=== PATIENT | male | born 1985 | race Two or more races ===

== ENCOUNTER 2019-04-17 13:28 | Emergency (ER) | payer OTHER ==
[~2019-04-17] VITALS: Ht 182.9 cm; Wt 120.2 kg
--- NOTE | 2019-04-17 13:35 | NUR ---
ED Nurse Note: Pt BIBA from the street due to ETOH, unknown amount of alcohol. Pt fell 1 hr prior to arrival, hit his frontal head, abrasion noted on chin and upper lip. No LOC. C/o dizziness. Pt seems anxious and asked for "Morphine for pain". HR 127, PA aware. Pt ambulated to the bathroom with steady gait. Will cont to monitor.
[2019-04-17] MEDS ORDERED: Ketorolac 30mg Inj IV ONE (13:45)
[2019-04-17 14:02] LABS: APPEARANCE,URINE CLEAR; BASOPHILS % (AUTO) 1.4 % (0.0-2.0); BILIRUBIN, URINE 1+ (NEGATIVE); EOSINOPHILS % (AUTO) 0.1 % (0.0-3.0); GLUCOSE, URINE (UA) NEGATIVE (NEGATIVE); HEMATOCRIT 48.8 % (42.0-52.0); HEMOGLOBIN 16.9 G/DL (14.2-18.0); KETONES,URINE 2+ (NEGATIVE); LEUKOCYTE ESTERASE ,URINE 1+ (NEGATIVE); LYMPHOCYTES % (AUTO) 10.9 % (20.0-45.0); MEAN CORPUSCULAR VOLUME 85 FL (80-99); MONOCYTES % (AUTO) 8.4 % (1.0-10.0); NEUTROPHILS % (AUTO) 79.2 % (45.0-75.0); NITRITE,URINE NEGATIVE (NEGATIVE); PH,URINE 5 (4.5-8.0); PLATELET COUNT 220 K/UL (150-450); PROTEIN,URINE 3+ (NEGATIVE); RED BLOOD COUNT 5.73 M/UL (4.70-6.10); RED CELL DISTRIBUTION WIDTH 12.2 % (11.6-14.8); UROBILINOGEN,URINE 4 MG/DL (0.0-1.0); WHITE BLOOD COUNT 11.6 K/UL (4.8-10.8)
[2019-04-17 14:05] LABS: COLOR,URINE BROWN
[2019-04-17 14:27] LABS: ANION GAP 14 mmol/L (5-15); BLOOD UREA NITROGEN 3 mg/dL (7-18); CALCIUM 8.7 MG/DL (8.5-10.1); CARBON DIOXIDE 24 MMOL/L (21-32); CHLORIDE 104 MMOL/L (98-107); CREATININE 0.8 MG/DL (0.55-1.30); POTASSIUM 3.6 MMOL/L (3.5-5.1); SODIUM 142 MMOL/L (136-145)
--- NOTE | 2019-04-17 14:27 | NUR ---
ED Nurse Note: Pt down to CT for imaging on wheelchair.
--- NOTE | 2019-04-17 14:33 | NUR ---
ED Nurse Note: Pt back from CT on wheelchair. Pt pulled out his IV line, PA notified.
[2019-04-17 14:40] LABS: ALANINE AMINOTRANSFERASE 102 U/L (12-78); ALBUMIN 4.2 G/DL (3.4-5.0); ALBUMIN/GLOBULIN RATIO 0.9 (1.0-2.7); ALKALINE PHOSPHATASE 108 U/L (46-116); ASPARTATE AMINO TRANSFERASE 197 U/L (15-37); BILIRUBIN,TOTAL 0.9 MG/DL (0.2-1.0); CREATINE KINASE 5058 U/L (26-308)
--- NOTE | 2019-04-17 15:17 | Diagnostic Imaging Report ---
Indication: Headache. Head trauma Technique: Contiguous 5 mm thick transaxial imaging of the head obtained in a Siemens Sensation [address] scanner. Soft tissue and bone windows generated. Automatic Exposure Control was utilized. Total Dose length Product (DLP): 1397.[address] Dose Index Volume (CTDIvol): 70.38 mGy Comparison: none Findings: The size and configuration of the cortical sulci, basal cisterns, and ventricles are within normal limits for age. There is no mass effect, midline shift, or edema identified. There is no evidence of acute hemorrhage or abnormal intra-axial or extra-axial fluid collections. The bones and soft tissues are unremarkable. Impression: No mass effect, edema or acute bleed. The CT scanner at [facility] is accredited by the [employer] and the scans are performed using dose optimization techniques as appropriate to a performed exam including Automatic Exposure control.
--- NOTE | 2019-04-17 15:42 | NUR ---
ED Nurse Note: pt. pulled out his iv access againa. Pt. has a steady gait and speaks in full sentences
--- NOTE | 2019-04-17 15:43 | Emergency Room Report ---
History of Present Illness General Chief Complaint: Alcohol Intoxication Source: Patient, Medical Record Present Illness HPI 33-year-old male with no significant past medical history brought in by the paramedics due to alcohol intoxication.per Paramedics report patient was wandering the streets, fell on his face however had no LOC noted. Patient speaking full sentences, wandering the hallways, denies any past medical history. Patient does not recall how much alcohol he had however reports that he has a 10 out of 30 headache and may have hit his head. Patient is not a good historian. Denies dizziness, blurry vision, nausea vomiting. Denies drug use. Denies chest pain, shortness of breath, palpitation, abdominal pain. Patient is requesting morphine. Allergies: Coded Allergies: No Known Allergies (Unverified , 04/17/19) Patient History Past Medical History: see triage record Past Surgical History: unable to obtain Pertinent Family History: none Immunizations: UTD Reviewed Nursing Documentation: PMH: Agreed; PSxH: Agreed Nursing Documentation-PMH Past Medical History: No Stated History Review of Systems All Other Systems: negative except mentioned in HPI Physical Exam Vital Signs Date Time Temp Pulse Resp B/P (MAP) Pulse Ox O2 Delivery O2 Flow Rate FiO2 04/17/19 13:19 98.6 127 20 145/88 (107) 97 Room Air Sp02 EP Interpretation: reviewed, normal General Appearance: alert, GCS 15, mild distress, other - Disheveled Head: normocephalic, atraumatic Eyes: bilateral eye normal inspection, bilateral eye PERRL ENT: normal ENT inspection, hearing grossly normal Neck: normal inspection, full range of motion, supple Respiratory: normal inspection, chest non-tender, lungs clear, normal breath sounds, no rhonchi Cardiovascular #1: normal inspection, regular rate, rhythm, no gallop, no murmur Gastrointestinal: normal inspection, soft Rectal: deferred Genitourinary: no CVA tenderness Musculoskeletal: back normal, digits/nails normal Neurologic: normal inspection, alert, oriented x3 Psychiatric: normal inspection, judgement/insight normal Skin: no rash Lymphatic: normal inspection, no adenopathy Medical Decision Making PA Attestation All my diagnosis and treatment plans were reviewed ad discussed with my supervising physician Dr. Matthews Diagnostic Impression: Primary Impression: Acute alcoholic intoxication ER Course 33-year-old male with no significant past medical history brought in by the paramedics due to alcohol intoxication.per Paramedics report patient was wandering the streets, fell on his face however had no LOC noted. Patient speaking full sentences, wandering the hallways, denies any past medical history. Patient does not recall how much alcohol he had however reports that he has a 10 out of 30 headache and may have hit his head. Patient is not a good historian. Denies dizziness, blurry vision, nausea vomiting. Denies drug use. Denies chest pain, shortness of breath, palpitation, abdominal pain. Patient is requesting morphine. Ddx considered but are not limited to: generalized anxiety disorder, panic attack, depression with psycotic featurs, bipolar disorder, drug overdose Vital signs: are WNL, pt. is afebrile H&PE are most consistent with: Alcohol intoxication, drug-seeking behavior ORDERS: IV fluids, Toradol, Zofran, CBC, CMP, CK, UA, tox screen ED INTERVENTIONS: IV fluids, Toradol, Zofran DISCHARGE: At this time pt. is stable for d/c to home. Will provide printed patient care instructions, and any necessary prescriptions. Care plan and follow up instructions have been discussed with the patient prior to discharge. Patient was stable at time of discharge, sober, speaking in full sentences and communicating. Patient requested more pain medication and was given another dose of IM Toradol was given as patient kept taking his IV out. Patient in no distress at time of discharge. CT/MRI/US Diagnostic Results CT/MRI/US Diagnostic Results : Imaging Test Ordered: Head CT no contrast Impression No hematoma noted Last Vital Signs Date Time Temp Pulse Resp B/P (MAP) Pulse Ox O2 Delivery O2 Flow Rate FiO2 04/17/19 14:11 98.6 04/17/19 13:27 127 20 Room Air 04/17/19 13:19 145/88 (107) 97 Disposition: HOME, SELF-CARE Condition: Stable Referrals: NON PHYSICIAN (PCP) Patient Instructions: Alcohol Intoxication, [id number] Danisha Bentley Apr 17, 2019 15:43
[2019-04-17] MEDS ORDERED: Ketorolac 30mg Inj IM ONE (15:45)
[2019-04-17] MEDS ORDERED: Ketorolac 30mg Inj ONE (15:47)
[2019-04-17 15:54] VITALS: BP 156/89
[2019-04-17 16:08] VITALS: BP 156/89
--- NOTE | 2019-04-17 16:08 | NUR ---
ER DISCHARGE NOTE: Patient is cleared to be discharged per PA, pt is aox4, on room air, with stable vital signs. pt was given dc instructions, pt was able to verbalize understanding, pt id band and iv site removed without complications. pt is able to ambulate with steady gait. pt took all belongings.
== END 2019-04-17 16:08 | disposition home or self-care (01) ==
LOC: EDBD 13:28 → EMR 14:19
DX: F10.129 Alcohol abuse with intoxication, unspecified (principal)
CPT/HCPCS: 36415; 70450; 80053; 80307; 80329; 81001; 82550; 85025; 96361; 96372; 96374; 96375; 99284; J1885; J2405